=== PATIENT | male | born 1960 | race Two or more races ===

== ENCOUNTER → 2023-12-14 | Outpatient (CLI) | payer OTHER ==
[~2023-12-14] MED LIST: AMLODIPINE-OLM1 EAC2 PO; ANTIVERT25 M2 PO; IRBESARTAN150 MG PO; LIPITOR20 MG PO; MEDROLPACK PO; UROXATRAL10 MG PO
== END | disposition home or self-care (01) ==
LOC: RAD 08:31
PROVIDERS: ATTEND Physical Medicine & Rehabilitation Hospice and Palliative Medicine
DX: M25.522 Pain in left elbow (principal); M77.12 Lateral epicondylitis, left elbow; M77.02 Medial epicondylitis, left elbow

== ENCOUNTER 2024-11-25 05:24 | Emergency (ER) | payer OTHER ==
[~2024-11-25] VITALS: Ht 180.3 cm; Wt 93.0 kg
[2024-11-25] MEDS ORDERED: FAMOtidine 10 MG/ML (4ML VIAL) IV PUSH STA (06:00)
[2024-11-25] MEDS ORDERED: ONDANSETRON HCL 2 MG/ML VIAL IV STA (06:00)
[2024-11-25] MEDS ORDERED: KETOROLAC TROMETHAMINE 30 MG VIAL IV STA (06:01)
[2024-11-25] MEDS ORDERED: DEXAMETHASONE SODIUM PHOSPHATE 4 MG/ML VIAL IV STA (06:03)
[2024-11-25] MEDS ORDERED: ONDANSETRON HCL 2 MG/ML VIAL ONE (06:06)
[2024-11-25] MEDS ORDERED: DEXAMETHASONE SODIUM PHOSPHATE 4 MG/ML VIAL ONE (06:06)
[2024-11-25] MEDS ORDERED: KETOROLAC TROMETHAMINE 30 MG VIAL ONE (06:06)
[2024-11-25] MEDS ORDERED: FAMOTIDINE/PF 20 MG/2 ML VIAL ONE (06:07)
[2024-11-25] MEDS ORDERED: OxyCODONE HCL 5 MG TABLET (ROXICODONE) PO STA (07:10)
== END 2024-11-25 07:46 | disposition home or self-care (01) ==
LOC: ER 05:24
DX: K29.70 Gastritis, unspecified, without bleeding (principal); M13.0 Polyarthritis, unspecified; M54.50 Low back pain, unspecified; I10 Essential (primary) hypertension
CPT/HCPCS: 96365; 99282; J1100; J1885; J2405; J3490